=== PATIENT | female | born 2000 | race Caucasian/White ===

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

== ENCOUNTER 2020-05-17 10:30 | Emergency (ER) | payer OTHER ==
[~2020-05-17] VITALS: Ht 165.1 cm; Wt 86.2 kg
[~2020-05-17 10:30] MED LIST: SERTRALINE HCL100 MG PO; SPIRONOLACTONE25 MG PO; ZOFRAN ODT4 MG PO
[2020-05-17 11:02] LABS: URINE BILIRUBIN NEGATIVE (Negative); URINE BLOOD 2+ (Negative); URINE CLARITY CLOUDY; URINE COLOR YELLOW; URINE GLUCOSE-RANDOM* NEGATIVE (Negative); URINE KETONES NEGATIVE (Negative); URINE NITRITE-REFLEX NEGATIVE (Negative); URINE PROTEIN (DIPSTICK) NEGATIVE (Negative); URINE SPECIFIC GRAVITY 1.025 (1.005-1.035); URINE UROBILINOGEN 0.2 E.U./dl (0.2-1.0)
[2020-05-17 11:04] LABS: URINE LEUKOCYTES-REFLEX 3+ (Negative)
[2020-05-17 11:17] LABS: SQUAMOUS >10 Many /LPF (0-3)
[2020-05-17 11:18] LABS: BACTERIA-REFLEX >30 Many /HPF (None Seen); CASTS None Seen /LPF (None Seen); CRYSTALS None Seen /LPF (None Seen); URINE RBC 3-10 Few /HPF (0-2); URINE WBC-REFLEX >25 Many /HPF (0-5)
[2020-05-17 11:32] LABS: ABSOLUTE NEUTROPHILS 10.3 thou/uL (1.4-8.2); BASOPHILS 0.2 % (0.0-2.0); EOSINOPHILS 0.4 % (0.0-3.0); HEMATOCRIT 36.3 % (37.0-47.0); LYMPHOCYTES 5.7 % (24.0-44.0); MCHC 32.9 g/dL (28.0-37.0); MCV 91.1 fL (80.0-100.0); MONOCYTES 7.5 % (1.0-8.0); PLATELET COUNT 156 thou/uL (150-400); POLYS 86.2 % (36.0-66.0); RBC 3.99 mil/uL (4.20-5.00); RDW 13.2 % (10.5-14.5)
[2020-05-17 11:46] LABS: CALCIUM 8.5 mg/dL (8.5-10.1); CREATININE 1.1 mg/dL (0.6-1.0); POTASSIUM 3.7 mmol/L (3.5-5.1)
[2020-05-17] MEDS ORDERED: SPIRONOLACTONE100 M1 PO (11:51)
[2020-05-17 11:52] LABS: ALBUMIN 3.7 g/dL (3.4-5.0); TOTAL BILIRUBIN 0.3 mg/dL (0.2-1.0); TOTAL PROTEIN 7.4 g/dL (6.4-8.2)
[2020-05-17] MEDS ORDERED: WELLBUTRIN SR150 MG PO (11:52)
[2020-05-17 14:50] VITALS: BP 92/67
--- NOTE | 2020-05-17 16:20 | EKG ---
[place] [address] [facility] [place] [address] ELECTROCARDIOGRAM REPORT Name: TRUDORON Room #: [facility]#: [id number] Admission: 05/17/20 Attend Phys: Discharge: 05/17/20 Date of : [birth year] Report #: [id number] [facility] ED Test Date: 2020-05-17 Test Time: 11:00:50 Pat Name: DORON OTT Department: Room: Gender: F Syrup Mixer Assistant: PARTHA : 2000 Requested By: Abundio Harris Order Number: [id number] MD: Sai Bowman Measurements Intervals [place] Rate: 123 P: 55 [place]: 125 QRS: 14 QRSD: 79 T: -35 QT: 302 QTc: 432 Interpretive Statements Sinus tachycardia Nonspecific T abnormalities, anterior leads Baseline wander in lead(s) V4,V6 Compared to ECG 04/08/2019 13:49:02 T-wave abnormality now present Sinus rhythm no longer present Electronically Signed On 05-17-2020 16:20:36 ELECTRIC ARC FURNACE OPERATOR by Sai Bowman [email or web address] <ELECTRONICALLY SIGNED> By: Sai Bowman MD, [facility] 05/17/20 1620 1100 1100 Sai Bowman MD, [facility] /EPI
[2020-05-21 08:06] LABS: HSV 1 DNA Positive (Negative); HSV 2 DNA Negative (Negative)
[2020-05-21] MEDS ORDERED: ZPAK PO (08:23)
[2020-05-21 09:01] LABS: HSV PCR SOURCE VULVA
== END 2020-05-17 14:58 | disposition home or self-care (01) ==
LOC: ER 10:30
PROVIDERS: Emergency Medicine; Nurse Practitioner
DX: R50.9 Fever, unspecified (principal); Z79.899 Other long term (current) drug therapy; Z88.1 Allergy status to other antibiotic agents; Z88.8 Allergy status to other drugs, medicaments and biological substances; Z20.828 Contact with and (suspected) exposure to other viral communicable diseases